=== PATIENT | female | born 1985 | race Caucasian/White ===

== ENCOUNTER 2017-02-16 21:22 | Emergency (ER) | payer MEDICARE, MEDICAID | END 2017-02-16 22:26 | disposition home or self-care (01) | LOC: D.ER 21:22 | DX: L02.612 Cutaneous abscess of left foot (principal) ==

== ENCOUNTER 2019-03-30 19:53 | Emergency (ER) | payer MEDICARE, MEDICAID ==
[~2019-03-30] VITALS: Ht 154.9 cm; Wt 79.5 kg
[2019-03-30 19:56] VITALS: Ht 154.9 cm; Wt 79.5 kg
[2019-03-30] MEDS ORDERED: SEROQUEL100 MG PO (19:58)
[2019-03-30] MEDS ORDERED: SINEQUAN100 MG PO (19:58)
[2019-03-30] MEDS ORDERED: PROPRANOLOL HCL20 MG PO (19:58)
[2019-03-30] MEDS ORDERED: FLUVOXAMINE MA100 M1 PO (19:59)
[2019-03-30] MEDS ORDERED: CARBATROL 200200 MG PO (20:00)
[2019-03-30 20:29] LABS: BASOPHILS 0.2 % (0-2); EOSINOPHILS 2.9 % (0-7); HEMATOCRIT 42.1 % (36.0-48.0); HEMOGLOBIN 14.2 g/dL (12-16); IMMATURE GRANULOCYTES 0.3 % (0-5); LYMPHOCYTES 23.7 % (15-50); MCH 31.3 pg (26.0-34.0); MCHC 33.7 g/dL (31.0-37.0); MCV 92.9 fL (80.0-100.0); MEAN PLATELET VOLUME 10.3 fL (7.4-10.4); NEUTROPHILS 65.9 % (40-80); PLATELET COUNT 257 10x3/uL (130-400); RBC 4.53 10x6/uL (4.00-5.40); RDW 13.6 % (11.5-14.5); WBC 12.3 10x3/uL (4.8-10.8)
[2019-03-30 20:38] LABS: APTT 24.1 SECONDS (22.8-39.4); INR 1.06 (0.85-1.17); PROTIME 13.3 SECONDS (11.6-15.0)
[2019-03-30 20:45] LABS: ALBUMIN 3.8 g/dL (3.4-5.0); ALKALINE PHOSPHATASE 137 U/L (46-116); ALT (SGPT) 26 U/L (10-68); BILIRUBIN - TOTAL 0.26 mg/dL (0.2-1.3); CALC OSMOLALITY 285 mosm/kg (275-300); CALCIUM 8.4 mg/dL (8.5-10.1); CARBON DIOXIDE 29.3 mmol/L (21.0-32.0); CHLORIDE - SERUM 105 mmol/L (98-107); GLUCOSE 97 mg/dL (74-106); POTASSIUM - SERUM 3.8 mmol/L (3.5-5.1); PROTEIN - SERUM 6.6 g/dL (6.4-8.2); SODIUM 143 mmol/L (136-145); UREA NITROGEN 15 mg/dL (7-18); eGFR NON AFRICAN AMERICAN 67 mL/min (90-120)
[2019-03-30 20:59] LABS: CARBAMAZEPINE (TEGRETOL) 3.2 ug/mL (4.0-12.0); CREATINE KINASE 180 UL (21-215); MAGNESIUM - SERUM 2.1 mg/dL (1.8-2.4)
[2019-03-30 21:01] LABS: TROPONIN-I < 0.017 ng/mL (0.000-0.060)
[2019-03-30] MEDS ORDERED: PHENERGAN25 M1 PO (21:09)
[2019-03-30 22:08] VITALS: BP 112/70
--- NOTE | 2019-03-31 02:16 | NUR ---
DR ENRIQUEZ NOTIFIED AND REVIEWEED PT's BEHAVIOR AND ASSESSMENT RESULTS. PT IS A LOW RISK PER DR ENRIQUEZ. DR ENRIQUEZ STATED TO GIVE RESOURCES TO PT AT TIME OF DISCHARGE. NO FURTHER ORDERS AT THIS TIME. RESOURCES REVIEWED WITH PT AND SHE VERBALIZED UNDERSTANDING.
== END 2019-03-30 22:08 | disposition home or self-care (01) ==
LOC: D.ER 19:53
PROVIDERS: Family Medicine
DX: R11.2 Nausea with vomiting, unspecified (principal); T42.1X5A Adverse effect of iminostilbenes, initial encounter; F17.210 Nicotine dependence, cigarettes, uncomplicated; G47.00 Insomnia, unspecified; E07.9 Disorder of thyroid, unspecified

== ENCOUNTER 2019-04-05 13:04 | Emergency (ER) | payer MEDICARE, MEDICAID ==
[~2019-04-05] VITALS: Ht 154.9 cm; Wt 87.3 kg
[~2019-04-05 13:04] MED LIST: CARBATROL 200200 MG PO; FLUVOXAMINE MA100 M1 PO; PHENERGAN25 M1 PO; PROPRANOLOL HCL20 MG PO; SEROQUEL100 MG PO; SINEQUAN100 MG PO
[2019-04-05 13:07] VITALS: Ht 154.9 cm; Wt 87.3 kg
[2019-04-05 13:37] LABS: BASOPHILS 0.2 % (0-2); EOSINOPHILS 4.3 % (0-7); HEMATOCRIT 41.5 % (36.0-48.0); IMMATURE GRANULOCYTES 0.2 % (0-5); LYMPHOCYTES 22.1 % (15-50); MCH 31.6 pg (26.0-34.0); MCHC 33.7 g/dL (31.0-37.0); MCV 93.7 fL (80.0-100.0); MEAN PLATELET VOLUME 10.4 fL (7.4-10.4); MONOCYTES 7.5 % (2-11); NEUTROPHILS 65.7 % (40-80); PLATELET COUNT 269 10x3/uL (130-400); RBC 4.43 10x6/uL (4.00-5.40); RDW 13.3 % (11.5-14.5); WBC 11.2 10x3/uL (4.8-10.8)
[2019-04-05 13:47] LABS: APTT 24.5 SECONDS (22.8-39.4); INR 1.11 (0.85-1.17); PROTIME 13.8 SECONDS (11.6-15.0)
[2019-04-05 13:51] LABS: ALBUMIN 3.6 g/dL (3.4-5.0); ALKALINE PHOSPHATASE 136 U/L (46-116); ALT (SGPT) 28 U/L (10-68); BILIRUBIN - TOTAL 0.24 mg/dL (0.2-1.3); CALC OSMOLALITY 280 mosm/kg (275-300); CALCIUM 8.8 mg/dL (8.5-10.1); CARBON DIOXIDE 32.1 mmol/L (21.0-32.0); CHLORIDE - SERUM 104 mmol/L (98-107); GLUCOSE 125 mg/dL (74-106); POTASSIUM - SERUM 3.9 mmol/L (3.5-5.1); PROTEIN - SERUM 6.8 g/dL (6.4-8.2); SODIUM 140 mmol/L (136-145); UREA NITROGEN 14 mg/dL (7-18); eGFR NON AFRICAN AMERICAN 67 mL/min (90-120)
[2019-04-05 14:02] LABS: CKMB 1.1 U/L (0.0-3.6); CREATINE KINASE 172 UL (21-215); MAGNESIUM - SERUM 2.1 mg/dL (1.8-2.4); TROPONIN-I < 0.017 ng/mL (0.000-0.060)
[2019-04-05] MEDS ORDERED: PEPCID40 MG PO (16:35)
[2019-04-05 17:38] VITALS: BP 108/67
== END 2019-04-05 17:38 | disposition home or self-care (01) ==
LOC: D.ER 13:04
PROVIDERS: Family Medicine
DX: R07.9 Chest pain, unspecified (principal); M25.511 Pain in right shoulder

== ENCOUNTER → 2019-04-17 14:18 | Outpatient (CLI) | payer MEDICARE, MEDICAID ==
[2019-04-05 13:07] VITALS: BMI 36.3
[~2019-04-17 14:18] MED LIST changes: +PEPCID40 MG PO
--- NOTE | 2019-04-26 09:07 | ST ---
PATIENT:JAYA OGMEZ MEDICAL RECORD: [id number] SEX: F LOCATION:[facility] ORDER #: ADMISSION DATE: 04/17/19 AGE OF PATIENT: 34 REFERRING PHYSICIAN: INTERPRETING PHYSICIAN: FERCHO SUN MD DATE OF SERVICE: 04/17/2019 PROCEDURE: Treadmill stress test. Baseline ECG is normal. Exercised for 7 minutes on Malcolm protocol, maximum heart 166 beats per minute, greater than 85% of max predicted. No ECG change of ischemia. No symptoms ischemia. Normal blood pressure response to exercise. No arrhythmias noted. Fair exercise tolerance for age. TRANSINT:[id number] Voice Confirmation ID: [id number] DOCUMENT ID: [id number] FERCHO SUN MD at 0907 CC: [id number] DICTATION DATE: 04/25/19 1407 MAIL TECHNICIAN: 04/25/19 1432 DEP CLI 04/17/19 [id number] [place] [address]
== END | disposition home or self-care (01) ==
LOC: D.HCCARDIO 14:18
PROVIDERS: ATTEND Internal Medicine Interventional Cardiology
DX: R07.9 Chest pain, unspecified (principal)

== ENCOUNTER 2020-12-10 18:48 | Emergency (ER) | payer MEDICARE, MEDICAID ==
[~2020-12-10] VITALS: Ht 154.9 cm; Wt 84.1 kg
[2020-12-10 19:15] VITALS: Ht 154.9 cm; Wt 84.1 kg
[2020-12-10] MEDS ORDERED: BUPROPION XL300 MG PO (19:21)
[2020-12-10] MEDS ORDERED: LAMICTAL200 M1 PO (19:21)
[2020-12-10] MEDS ORDERED: LEXAPRO10 MG PO (19:21)
[2020-12-10] MEDS ORDERED: ATARAX 25 MG TA25 MG PO (19:22)
[2020-12-10 19:46] LABS: BASOPHILS 0.4 % (0-2); EOSINOPHILS 0.4 % (0-7); HEMATOCRIT 37.9 % (36.0-48.0); HEMOGLOBIN 13.1 g/dL (12-16); LYMPHOCYTES 27.4 % (15-50); MCH 30.5 pg (26.0-34.0); MCHC 34.4 g/dL (31.0-37.0); MCV 88.7 fL (80.0-100.0); MEAN PLATELET VOLUME 8.4 fL (7.4-10.4); MONOCYTES 6.1 % (2-11); NEUTROPHILS 65.7 % (40-80); PLATELET COUNT 293 10x3/uL (130-400); RBC 4.27 10x6/uL (4.00-5.40); RDW 13.9 % (11.5-14.5); WBC 10.9 10x3/uL (4.8-10.8)
[2020-12-10 20:02] LABS: ALBUMIN 3.3 g/dL (3.4-5.0); CALCIUM 8.4 mg/dL (8.5-10.1); POTASSIUM - SERUM 3.5 mmol/L (3.5-5.1); PROTEIN - SERUM 6.6 g/dL (6.4-8.2)
[2020-12-10 20:13] LABS: ANION GAP 12.9 mmol/L (8-16); BILIRUBIN - TOTAL 0.18 mg/dL (0.2-1.3); CARBON DIOXIDE 25.6 mmol/L (21.0-32.0)
[2020-12-10 22:05] VITALS: BP 132/71
== END 2020-12-10 22:05 | disposition home or self-care (01) ==
LOC: D.ER 18:48
PROVIDERS: Family Medicine
DX: K13.79 Other lesions of oral mucosa (principal); F31.9 Bipolar disorder, unspecified; R42 Dizziness and giddiness; R51.9 Headache, unspecified; Z72.0 Tobacco use